=== PATIENT | female | born 1995 | race Caucasian/White ===

== ENCOUNTER 2025-05-24 14:37 | Inpatient (IN) | payer MEDICAID, SELFPAY ==
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
[2025-05-24 15:05] VITALS: BP 139/89; PULSE 78; RESP 14; TEMP 37.1; O2SAT 100
[2025-05-24 15:15] VITALS: BMI 28.4
[2025-05-24] MEDS: Nicotine 21 MG PATCH.TD24 TRANSDERMA (17:18)
--- OUTSIDE RECORDS SUMMARY | 2025-05-24 17:59 | XMS_ITS | Clinical Summary ---
Author Organization [facility] Wil[facility] nix Address [address] [place], [place] [id number] Care Team Providers Care Wildlife Conservationist Name Role Phone None, Pcp MD Primary Care Provider Unavailabl e Allergies Active Allergy Reactions Criticality Noted Date Comments Amoxicillin Hives 05/23/2025 Methadone Hives Low 05/23/2025 Penicillins Hives 05/23/2025 Medications ARIPiprazole (ABILIFY) 15 MG tablet Take 1 tablet (15 mg total) by mouth in the morning. 05/14/2025 Active Encounters Date Type Department Care Team Description 05/24/2025 12:05 AM EST - 05/24/2025 12:11 PM EST Hospital Encounter [facility] Emergency Department [address] [place] [id number] Quincy Dudley MD Schacht, Jesse A, MD Suicidal ideation (Primary Dx) Discharge Disposition: Psychiatric Hospital 05/23/2025 4:19 PM EST - 05/23/2025 8:33 PM EST Emergency [facility] Emergency Department [address] [place] [id number] Armaan Bailey MD Contusion of left wrist, initial encounter (Primary Dx); Closed head injury, initial encounter Discharge Disposition: Home or Self Care 05/23/2025 Travel from Last 3 Months Social History Tobacco Use Types Packs/Day Years Used Date Smoking Tobacco: Never Assessed Comments Unknown Sex and Gender Information Value Date Recorded Sex Assigned at Female 05/23/2025 4:43 PM EST Legal Sex Female 4:19 PM EST Gender Identity Female 05/23/2025 4:43 PM EST Sexual Orientation Not on file Last Filed Vital Signs Vital Sign Reading [...] Mass Index 29.95 05/24/2025 12:02 AM EST Plan of Treatment Health Maintenance Due Date Last Done Comments Depression Screening 2007 Hepatitis C Screening 11/01/2013 DTaP,Tdap,and Td Vaccines (1 - Tdap) 11/01/2014 Cervical Cancer Screening 11/01/2016 Pap Smear 11/01/2016 COVID-19 Vaccine (2024-2 6 season) 2025 Influenza Vaccine (#1) 2025 Blood Pressure 05/24/2029 05/24/2025 Meningococcal B Vaccines Aged Out No longer eligible based on patient's age to complete this topic Meningococcal Vaccines Aged Out No lo nger eligible based on patient's age to complete this topic Pneumococcal Vaccine Aged Out No long er eligible based on patient's age to complete this topic Procedures Procedure Name Priority Date/Time Associated Diagnosis Comments DRUG SCREEN, URINE STAT 05/24/2025 9: 07 AM EST ECG 12-LEAD STAT 05/24/2025 2:09 AM EST CBC AND DIFFERENTIAL STAT 05/24/2025 1:16 AM EST CBC AND DIFFERENTIAL STAT 05/24/2025 1:16 AM EST HCG, QUANTITATIVE STAT 05/24/2025 1:1 6 AM EST COMPREHENSIVE METABOLIC PANEL STAT 05/24/2025 1:16 AM EST TOXICOLOGY SCREEN, BLOOD STAT 05/24/2025 1:16 AM EST MAGNESIUM STAT 05/24/2025 1:[address] CERVICAL SPINE WO CONTRAST STAT 05/23/2025 5:[address] HEAD WO CONTRAST STAT 05/23/2025 5 :27 PM EST XR WRIST 3+ VW LEFT STAT 05/23/2025 5 :22 PM EST from Last 3 Months Results * (ABNORMAL) Drug Screen, Urine (05/24/2025 9:07 AM EST) [facility] Amphetamines Screen, Urine Positive(A) Negative 05/24/2025 9:35 AM [facility] Barbiturates Screen, Urine Negative Negative 05/24/2025 9:35 AM [facility] Benzodiazepine Screen, Urine Negative Negative 05/24/2025 9:35 AM [facility] Buprenorphine Screen, Urine Negative Negative 05/24/2025 9:35 AM [facility] Cannabinoids Screen, Urine Positive(A) Negative 05/24/2025 9:35 AM [facility] Cocaine Metabolite Screen, Urine Positive(A) Negative 05/24/2025 9:35 AM [facility] Fentanyl Screen, Urine Negative Negative 05/24/2025 9:35 AM [facility] Methadone Screen, Urine Negative Negative 05/24/2025 9:35 AM [facility] Opiates Screen, Urine Negative Negative 05/24/2025 9:35 AM [facility] Oxycodone Screen, Urine Negative Negative 05/24/2025 9:35 AM [facility] Propoxyphene Screen, Urine Negative Negative 05/24/2025 9:35 AM [facility] Tricyclics Screen Negative Negative 025 9:35 AM [facility] Comment 05/24/2025 9:35 AM [facility] Comment: The cut-off concentration [...] URINE ORDERABLES Final Result Performing Organization Address City/[facility]/ZIP Co de Phone Number [facility] [address] [place] [address], [place] * ECG 12 lead (05/24/2025 2:09 AM EST) Ventricular Heart Rate 84 BPM EKG BUR MUSE MA Interval 151 ms EKG BUR MUSE QRSD Interval 88 ms EKG BUR MUSE QT Interval 398 ms EKG BUR MUSE QTC Interval 472 ms EKG BUR MUSE P [place] 35 degrees EKG BUR MUSE R [place] 57 degrees EKG BUR MUSE T Wave [place] 30 degrees EKG BUR MUSE 05/24/2025 2:08 [...] ECG ORDERABLES Final Result Performing Organization Address City/[facility] Co de Phone Number EKG BUR MUSE [address] [place] [address] * (ABNORMAL) CBC and Differential (05/24/2025 1:16 AM EST) WBC 6.84 3.90 - 10.80 K/uL 05/24/2025 1:23 AM EST [facility] RBC 4.15 3.93 - 5.29 M/uL 05/24/2025 1:23 AM [facility] Hemoglobin 12.3 12.0 - 15.2 g/dL 05/24/2025 1:23 AM [facility] Hematocrit 37.9 34.1 - 44.9 % 05/24/2025 1:23 AM [facility] MCH 29.6 25.6 - 32.2 pg 05/24/2025 1:23 AM [facility] MCHC 32.5 32.0 - 36.0 g/dL 05/24/2025 1:23 AM [facility] MCV 91 81 - 96 fL 05/24/2025 1:23 AM [facility] RDW 14.7(H) 11.5 - 14.0 % 05/24/2025 1:23 AM [facility] Platelet Count 228 154 - 369 K/uL 05/24/2025 1:23 AM [facility] Neutrophil 43.6 % 05/24/2025 1:23 AM [facility] Lymphocyte 42.0 % 05/24/2025 1:23 AM [facility] Monocyte 9.4 % 05/24/2025 1:23 AM [facility] Eosinophil 3.9 % 05/24/2025 1:23 AM [facility] Basophil 0.7 % 05/24/2025 1:23 AM [facility] Immature Granulocyte ([place], Myelo, Promyelocyte) 0.4 % 05/24/2025 1:23 AM [facility] Absolute Neutrophil Count 2.98 1.68 - 7.99 K/uL 05/24/2025 1:23 AM [facility] Absolute Immature Granulocyte ([place], Myelo, Promyelocyte) 0.03 0.00 - 0.09 K/uL 05/24/2025 1:23 AM [facility] Absolute Lymphocyte Count 2.87 0.66 - 4.75 K/uL 05/24/2025 1:23 AM [facility] Absolute Monocyte Count 0.64 0.16 - 1.40 K/uL 05/24/2025 1:23 AM [facility] Absolute Eosinophil Count 0.27 0.00 - 0.60 K/uL 05/24/2025 1:23 AM EST [facility] Absolute Basophil Count 0.05 0.00 - 0.32 K/uL 05/24/2025 1:23 AM [facility] Blood PERIPHERAL BLOOD SPECIMEN / Unknown Venipuncture / Unknown 05/24/2025 1:16 AM EST 05/24/2025 1:20 AM EST us Quincy Dudley MD LAB BLOOD ORDERABLES Final Resul t Performing Organization Address [facility] de Phone Number [facility] [address] [place] [phone], [place] * (ABNORMAL) Toxicology Screen, Blood (05/24/2025 1:16 AM EST) Acetaminophen Result,Blood <5(L) 10 - 30 ug/mL 05/24/2025 1:52 AM [facility] Alcohol <10 <10 mg/dL 05/24/2025 1:52 AM [facility] Salicylate Level, Blood <1 <30 mg/dL 05/24/2025 1:52 AM [facility] Blood PERIPHERAL BLOOD SPECIMEN / Unknown Venipuncture / Unknown 05/24/2025 1:16 AM EST 05/24/2025 1:20 AM EST us Quincy Dudley MD LAB BLOOD ORDERABLES Final Resul t Performing Organization Address [facility] Phone Number [facility] [address] [place] [phone], [place] * hCG, serum, quantitative (05/24/2025 1:16 AM EST) hCG, Quant <1 mIU/mL 05/24/2025 1:43 AM [facility] Comment: Females: Non-: < [...] ORDERABLES Final Resul t Performing Organization Address City/[facility]/ZIP Co de Phone Number [facility] [address] [place] [address], [place] * Magnesium (05/24/2025 1:16 AM EST) Magnesium, Blood 2.1 1.6 - 2.6 mg/dL 05/24/2025 1:43 AM [facility] Blood PERIPHERAL BLOOD SPECIMEN / Unknown Venipuncture / Unknown 05/24/2025 1:16 AM EST 05/24/2025 1:20 AM EST Quincy Dudley MD LAB BLOOD ORDERABLES Final Resul t Performing Organization Address City/[facility] Co de Phone Number [facility] [address] [place] [address], [place] * (ABNORMAL) Comprehensive Metabolic Panel (05/24/2025 1:16 AM EST) Sodium 139 135 - 146 mmol/L 05/24/2025 1:43 AM [facility] Potassium 3.7 3.4 - 5.2 mmol/L 05/24/2025 1:43 AM [facility] Comment:Samples tested in [facility] may exhibit a higher potassium value than those tested on plasma. Our current range is based on plasma testing. Chloride 106 98 - 110 mmol/L 05/24/2025 1:43 AM [facility] Total CO2/Bicarbonate 24 24 - 32 mmol/L 05/24/2025 1:43 AM [facility] Anion Gap 9 2 - 15 mmol/L 05/24/2025 1:43 AM [facility] BUN 14 7 - 24 mg/dL 05/24/2025 1:43 AM [facility] Creatinine, Blood 0.70 0.50 - 1.10 mg/dL 05/24/2025 1:43 AM [facility] Glucose, Blood 79 50 - 100 mg/dL 05/24/2025 1:43 AM [facility] Calcium 8.4(L) 8.5 - 10.5 mg/dL 05/24/2025 1:43 AM [facility] Total Protein 6.6 6.2 - 8.2 g/dL 05/24/2025 1:43 AM [facility] Albumin, Blood 3.8 3.4 - 5.2 g/dL 05/24/2025 1:43 AM [facility] AST (SGOT) 27 11 - 40 U/L 05/24/2025 1:43 AM [facility] ALT (SGPT) 32 5 - 35 U/L 05/24/2025 1:43 AM [facility] Alkaline Phosphatase 54 35 - 150 U/L 05/24/2025 1:43 AM [facility] Total Bilirubin 0.4 0.2 - 1.2 mg/dL 05/24/2025 1:43 AM [facility] Estimated GFR(CKD-EPI) 120 mL/min/BSA 05/24/2025 1:43 AM [facility] Blood PERIPHERAL BLOOD SPECIMEN / Unknown Venipuncture / Unknown 05/24/2025 1:16 AM EST 05/24/2025 1:20 AM EST us Quincy Dudley MD LAB BLOOD ORDERABLES Final Resul t [facility] [address] [place] [phone], * CT Cervical Spine Without Contrast (05/23/2025 5:27 PM EST) Anatomical Region Laterality Modality Cervical Spine Computed Tomogra phy 05/23/2025 5:26 PM EST Impressions 05/23/2025 6:45 PM EST No evidence of acute fracture or subluxation. THIS DOCUMENT HAS BEEN ELECTRONICALLY SIGNED BY [facility] RADIOLOGIST AYLIN BOWENS MD Narrative 05/23/2025 6:45 [...] THIS DOCUMENT HAS BEEN ELECTRONICALLY SIGNED BY [facility] RADIOLOGIST MD JELENA Aster [facility] ORDERABLES Final Result * CT Head [...] HAS BEEN ELECTRONICALLY SIGNED BY [facility] RADIOLOGIST MD JELENA us Aster [facility] CT ORDERABLES Final Result * XR Wrist 3+ VW Left (05/23/2025 5:22 PM EST) Anatomical Region Laterality Modality Wrist Left Digital Radiogra phy 05/24/2025 8:25 AM EST Impressions 05/24/2025 8:27 AM EST Soft tissue swelling. No acute fracture. Signed By: Penelope Mcadams on 05/24/2025 8:27 AM on [id number] Narrative 05/24/2025 8:27 AM EST HISTORY: pain [...] Penelope Mcadams on 05/24/2025 8:27 AM on [id number] Aster [facility] ORDERABLE S Final Result from Last 3 Months Insurance [facility] [place] Member Subscriber Plan / Payer (Ef fective for All Dates) Name:Milena Valenzuela Member ID:Not on file Relation to Subscriber:Self Name:Milena Valenzuela Subscriber ID:Not on file Payer ID:Not on file Group ID:Not on file Type:Traditional / Indemnity Address: [facility] [address], [place] [facility] Health [facility] Maintenance [facility] ([facility]) Address: [address] [address] [place] Member Subscriber Plan / Payer (Ef fective for All Dates) Name:Milena Valenzuela Member ID:Not on file Relation to Subscriber:Self Name:Milena Valenzuela Subscriber ID:Not on file Payer ID:Not on file Group ID:Not on file Type:Traditional / Indemnity Address: [facility] [address], [place] [facility] [place] [facility] [place] [phone] [place] Care Teams Wildlife Conservationist Relationship Specialty Start Date End Date None, PcpMD PCP - General 05/23/25
--- OUTSIDE RECORDS SUMMARY | 2025-05-24 17:59 | XMS_ITS ---
Author Name [facility] Organization Unknown Results Test Name/Text Value Interpretation Date Range Source Test Serum Qual Negative 04/30/2025 - [facility] Acetaminophen Level <3 04/30/2025 0 - 18 [facility] Ethanol Level Not Detected 04/30/2025 - [facility] Salicylate Level <5.0 Below low normal 04/30/2025 15 - 30 [facility] Creatinine 0.84 MG/DL 04/30/2025 0.44 - 1.03 [facility] eGFR 96.0 mL/min/1.73m exp2 04/30/2025 90 - [facility] BUN Creatinine Ratio 24.0 04/30/2025 [facility] BUN 20.0 MG/DL 04/30/2025 6 - 24 [facility] Anion Gap 6.0 04/30/2025 3 - 13 [facility] CO2 28.0 MEQ/L 04/30/2025 20 - 29 [facility] Glucose 88.0 MG/DL 04/30/2025 67 - 99 [facility] K Level 4.0 MEQ/L 04/30/2025 3.6 - 5.1 [facility] NA 138.0 MEQ/L 04/30/2025 135 - 145 [facility] Chloride 104.0 MEQ/L 04/30/2025 98 - 110 [facility] CA 8.6 MG/DL 04/30/2025 8.4 - 10.2 [facility] Lymphocyte (percent) 41.4 % 04/30/2025 [facility] Eosinophil (absolute) 0.2 y97uxj8/L 04/30/2025 0 - 0.4 [facility] MCH 29.8 pg 04/30/2025 27 - 32.4 [facility] WBC 7.0 q38jln3/L 04/30/2025 4.2 - 10 [facility] Neutrophil (absolute) 3.0 j86awx3/L 04/30/2025 1.9 - 6.7 [facility] NRBC (percent) 0.0 % 04/30/2025 - [facility] Monocyte (absolute) 0.9 d94aao8/L 04/30/2025 0.3 - 0.9 [facility] RBC 4.0 p81zpd69/L 04/30/2025 3.8 - 5.1 [facility] Neutrophil (percent) 43.1 % 04/30/2025 [facility] Lymphocyte (absolute) 2.9 m03klb1/L 04/30/2025 1 - 3.3 [facility] Basophil (percent) 0.7 % 04/30/2025 [facility] HCT 35.7 % Below low normal 04/30/2025 36 - 48 [facility] Platelet Count 224.0 d93omk6/L 04/30/2025 168 - 38 2 [facility] Monocyte (percent) 12.4 % 04/30/2025 [facility] RDW 13.9 % 04/30/2025 11.8 - 14.4 [facility] Basophil (absolute) 0.1 i39bsz9/L 04/30/2025 0 - 0 .1 [facility] HGB 11.9 g/dL 04/30/2025 11.2 - 14.9 [facility] NRBC (absolute) 0.0 a33moh8/L 04/30/2025 [facility] MCV 89.3 fL 04/30/2025 85.2 - 100.2 [facility] MPV 9.5 fL Below low normal 04/30/2025 9.6 - 12.5 [facility] MCHC 33.3 g/dL 04/30/2025 29.5 - 34.2 [facility] Immature Granuloctyes (percent) 0.1 % 04/30/2025 [facility] Eosinophil (percent) 2.3 % 04/30/2025 [facility] Immature Granuloctyes (absolute) 0.0 g63wic4/L 04/30/2025 0 - 0.1 [facility] Leukocyte Est Urine negative 04/02/2025 - [facility] Appearance Urine CLOUDY Abnormal 04/02/2025 - [facility] Urobilinogen Urine negative 04/02/2025 - [facility] Nitrite level negative 04/02/2025 - [facility] Protein Urine negative 04/02/2025 - 10 [facility] Ketone Urine negative 04/02/2025 - [facility] Bilirubin Urine negative 04/02/2025 - [facility] Color Urine yellow 04/02/2025 - [facility] Specific [place] Urine 1.016 04/02/2025 1.01 - 1.03 [facility] Glucose Urine negative 04/02/2025 - [facility] Blood Urine negative 04/02/2025 - [facility] pH Urine 7.0 04/02/2025 5 - 8 [facility] UTI Symptoms Dysuria, urgenc 04/02/2025 [facility] Patient Diagnosis None of these 04/02/2025 [facility] Toxicology Drug Specimen Rec'd 04/02/2025 [facility] Urine Oxycodone Screen None Detected 04/02/2025 [facility] Urine Fentanyl Scrn None Detected 04/02/2025 [facility] Urine Benzodiazepine Scrn None Detected 04/02/2025 [facility] Urine Methadone Screen None Detected 04/02/2025 [facility] Urine Barbiturate Screen None Detected 04/02/2025 [facility] Urine Cocaine Scrn POSITIVE SCREEN Abnormal 04/02/2025 [facility] Urine Phencyclidine Scrn None Detected 04/02/2025 [facility] Urine Amphetamine Scrn None Detected 04/02/2025 [facility] Urine Opiates Scrn None Detected 04/02/2025 [facility] Urine Cannabinoid Scrn None Detected 04/02/2025 [facility] Does patient have covid related symptoms? NO 04/02/2025 [facility] Respiratory Syncytial Virus B Not Detected 04/02/2025 [facility] Mycoplasma pneumoniae Not Detected 04/02/2025 [facility] Chlamydia pneumoniae Not Detected 04/02/2025 [facility] Parainfluenza Virus 2 Not Detected 04/02/2025 [facility] Influenza A Subtype H1 Not Detected 04/02/2025 [facility] Influenza A Subtype H3 Not Detected 04/02/2025 [facility] SARS-CoV-2 Not Detected 04/02/2025 [facility] Influenza A Not Detected 04/02/2025 [facility] Influenza A Subtype 2009 H1N1 Not Detected 04/02/2025 [facility] Respiratory Pathogen Panel Comment Footnote 04/02/2025 [facility] Parainfluenza Virus 1 Not Detected 04/02/2025 [facility] Respiratory Syncytial Virus A Not Detected 04/02/2025 [facility] Influenza B Not Detected 04/02/2025 [facility] Coronavirus (229E, HKU1, NL63, OC43) Not Detected 04/02/2025 [facility] Adenovirus Not Detected 04/02/2025 [facility] Human Metapneumovirus Not Detected 04/02/2025 [facility] Parainfluenza Virus 4 Not Detected 04/02/2025 [facility] Parainfluenza Virus 3 Not Detected 04/02/2025 [facility] Human Rhinovirus/Enteroviru s Not Detected 04/02/2025 [facility] Future AOE for COVID No (just screen 04/02/2025 [facility] Ethanol Level Not Detected 04/02/2025 - [facility] eGFR 105.0 mL/min/1.73m exp2 04/02/2025 90 - [facility] Creatinine 0.78 MG/DL 04/02/2025 0.44 - 1.03 [facility] BUN Creatinine Ratio 15.0 04/02/2025 [facility] BUN 12.0 MG/DL 04/02/2025 6 - 24 [facility] Anion Gap 6.0 04/02/2025 3 - 13 [facility] CO2 27.0 MEQ/L 04/02/2025 20 - 29 [facility] Glucose 78.0 MG/DL 04/02/2025 67 - 99 [facility] CA 8.7 MG/DL 04/02/2025 8.4 - 10.2 [facility] K Level 4.3 MEQ/L 04/02/2025 3.6 - 5.1 [facility] NA 138.0 MEQ/L 04/02/2025 135 - 145 [facility] Chloride 105.0 MEQ/L 04/02/2025 98 - 110 [facility] Salicylate Level <5.0 Below low normal 04/02/2025 15 - 30 [facility] Acetaminophen Level <3 04/02/2025 0 - 18 [facility] Eosinophil (absolute) 0.2 z01myt6/L 04/02/2025 0 - 0.4 [facility] Eosinophil (percent) 2.5 % 04/02/2025 [facility] Lymphocyte (percent) 24.5 % 04/02/2025 [facility] Basophil (percent) 0.6 % 04/02/2025 [facility] RDW 14.6 % Above high normal 04/02/2025 11.8 - 14.4 [facility] Basophil (absolute) 0.1 d41zwa9/L 04/02/2025 0 - 0 .1 [facility] Immature Granuloctyes (absolute) 0.0 i76nbu6/L 04/02/2025 0 - 0.1 [facility] MCHC 31.9 g/dL 04/02/2025 29.5 - 34.2 [facility] MPV 9.2 fL Below low normal 04/02/2025 9.6 - 12.5 [facility] RBC 4.88 k32jaz64/L 04/02/2025 3.8 - 5.1 [facility] Lymphocyte (absolute) 1.9 i73nku5/L 04/02/2025 1 - 3.3 [facility] Neutrophil (absolute) 5.2 u84yey8/L 04/02/2025 1.9 - 6.7 [facility] Neutrophil (percent) 66.0 % 04/02/2025 [facility] NRBC (absolute) 0.0 l87kga2/L 04/02/2025 [facility] Monocyte (percent) 6.0 % 04/02/2025 [facility] Monocyte (absolute) 0.5 s31jzw5/L 04/02/2025 0.3 - 0.9 [facility] HCT 45.2 % 04/02/2025 36 - 48 [facility] NRBC (percent) 0.0 % 04/02/2025 - [facility] MCH 29.5 pg 04/02/2025 27 - 32.4 [facility] MCV 92.6 fL 04/02/2025 85.2 - 100.2 [facility] WBC 7.9 k07wcq6/L 04/02/2025 4.2 - 10 [facility] HGB 14.4 g/dL 04/02/2025 11.2 - 14.9 [facility] Immature Granuloctyes (percent) 0.4 % 04/02/2025 [facility] Platelet Count 270.0 p16kdh3/L 04/02/2025 168 - 38 2 [facility] Glumeter 85.0 MG/DL 04/02/2025 67 - 99 [facility] Does patient have covid related symptoms? NO 03/04/2025 [facility] Chlamydia pneumoniae Not Detected 03/04/2025 [facility] Parainfluenza Virus 2 Not Detected 03/04/2025 [facility] Adenovirus Not Detected 03/04/2025 [facility] Influenza A Subtype 2009 H1N1 Not Detected 03/04/2025 [facility] Human Metapneumovirus Not Detected 03/04/2025 [facility] Influenza B Not Detected 03/04/2025 [facility] Respiratory Syncytial Virus A Not Detected 03/04/2025 [facility] Human Rhinovirus/Enteroviru s Not Detected 03/04/2025 [facility] Parainfluenza Virus 3 Not Detected 03/04/2025 [facility] Parainfluenza Virus 1 Not Detected 03/04/2025 [facility] Influenza A Subtype H3 Not Detected 03/04/2025 [facility] SARS-CoV-2 Not Detected 03/04/2025 [facility] Parainfluenza Virus 4 Not Detected 03/04/2025 [facility] Respiratory Syncytial Virus B Not Detected 03/04/2025 [facility] Coronavirus (229E, HKU1, NL63, OC43) Not Detected 03/04/2025 [facility] Respiratory Pathogen Panel Comment Footnote 03/04/2025 [facility] Mycoplasma pneumoniae Not Detected 03/04/2025 [facility] Influenza A Subtype H1 Not Detected 03/04/2025 [facility] Influenza A Not Detected 03/04/2025 [facility] Future AOE for COVID No (just screen 03/04/2025 [facility] Test Serum Qual Negative 03/04/2025 - [facility] eGFR 114.0 mL/min/1.73m exp2 03/04/2025 90 - [facility] Creatinine 0.73 MG/DL 03/04/2025 0.44 - 1.03 [facility] BUN Creatinine Ratio 27.0 03/04/2025 [facility] BUN 20.0 MG/DL 03/04/2025 6 - 24 [facility] Anion Gap 12.0 03/04/2025 3 - 13 [facility] CO2 19.0 MEQ/L Below low normal 03/04/2025 20 - 29 [facility] Glucose 71.0 MG/DL 03/04/2025 67 - 99 [facility] NA 139.0 MEQ/L 03/04/2025 135 - 145 [facility] CA 9.5 MG/DL 03/04/2025 8.4 - 10.2 [facility] K Level 4.3 MEQ/L 03/04/2025 3.6 - 5.1 [facility] Chloride 108.0 MEQ/L 03/04/2025 98 - 110 [facility] MCH 29.6 pg 03/04/2025 27 - 32.4 [facility] Eosinophil (percent) 0.9 % 03/04/2025 [facility] Immature Granuloctyes (percent) 0.4 % 03/04/2025 [facility] MCHC 33.4 g/dL 03/04/2025 29.5 - 34.2 [facility] Neutrophil (absolute) 4.9 u31lvi4/L 03/04/2025 1.9 - 6.7 [facility] Lymphocyte (percent) 33.1 % 03/04/2025 [facility] Neutrophil (percent) 59.8 % 03/04/2025 [facility] HCT 43.4 % 03/04/2025 36 - 48 [facility] HGB 14.5 g/dL 03/04/2025 11.2 - 14.9 [facility] Lymphocyte (absolute) 2.7 y03dpr7/L 03/04/2025 1 - 3.3 [facility] Monocyte (absolute) 0.4 r34yvt0/L 03/04/2025 0.3 - 0.9 [facility] Platelet Count 405.0 a50dlz1/L Above high normal 03/04/2025 168 - 382 [facility] RBC 4.9 y07zij71/L 03/04/2025 3.8 - 5.1 [facility] Basophil (absolute) 0.1 u73nid1/L 03/04/2025 0 - 0 .1 [facility] Monocyte (percent) 5.1 % 03/04/2025 [facility] NRBC (percent) 0.0 % 03/04/2025 - [facility] WBC 8.2 g91ecf6/L 03/04/2025 4.2 - 10 [facility] MCV 88.6 fL 03/04/2025 85.2 - 100.2 [facility] Eosinophil (absolute) 0.1 w83ovx2/L 03/04/2025 0 - 0.4 [facility] Basophil (percent) 0.7 % 03/04/2025 [facility] RDW 14.0 % 03/04/2025 11.8 - 14.4 [facility] Immature Granuloctyes (absolute) 0.0 b83lrx8/L 03/04/2025 0 - 0.1 [facility] NRBC (absolute) 0.0 g53nju3/L 03/04/2025 [facility] MPV 9.2 fL Below low normal 03/04/2025 9.6 - 12.5 [facility] Urine Fentanyl Scrn POSITIVE SCRN Abnormal 02/23/2025 [facility] Urine Oxycodone Screen POSITIVE SCREEN Abnormal 02/23/2025 [facility] Urine Phencyclidine Scrn None Detected 02/23/2025 [facility] Urine Barbiturate Screen None Detected 02/23/2025 [facility] Urine Benzodiazepine Scrn None Detected 02/23/2025 [facility] Urine Opiates Scrn None Detected 02/23/2025 [facility] Urine Methadone Screen None Detected 02/23/2025 [facility] Urine Amphetamine Scrn None Detected 02/23/2025 [facility] Urine Cannabinoid Scrn None Detected 02/23/2025 [facility] Urine Cocaine Scrn POSITIVE SCREEN Abnormal 02/23/2025 [facility] Toxicology Drug Specimen Rec'd 02/23/2025 [facility] White Blood Cells Urine 36.0 /HPF Above high normal 02/23/2025 0 - 6 [facility] Squamous Epith Cells Urine many 02/23/2025 - [facility] Red Blood Cells Urine >180 Above high normal 02/23/2025 0 - 5 [facility] pH Urine 6.0 02/23/2025 5 - 8 [facility] Specific [place] Urine 1.025 02/23/2025 1.01 - 1.03 [facility] Nitrite level negative 02/23/2025 - [facility] Leukocyte Est Urine TRACE Abnormal 02/23/2025 - [facility] Urobilinogen Urine negative 02/23/2025 - [facility] Blood Urine 3+ Abnormal 02/23/2025 - [facility] Ketone Urine negative 02/23/2025 - [facility] Glucose Urine 3+ Abnormal 02/23/2025 - [facility] Protein Urine 100.0 MG/DL Abnormal 02/23/2025 - 10 [facility] Bilirubin Urine negative 02/23/2025 - [facility] Appearance Urine slt cldy 02/23/2025 - [facility] Color Urine LORAINE Abnormal 02/23/2025 - [facility] UTI Symptoms None of these s 02/23/2025 [facility] Patient Diagnosis None of these 02/23/2025 [facility] OTHER SYMPTIONS URINE CULTURE confusion 02/23/2025 [facility] Test Serum Qual Negative 02/23/2025 - [facility] CPK 271.0 IU/L Above high normal 02/23/2025 22 - 194 [facility] Salicylate Level <5.0 Below low normal 02/23/2025 15 - 30 [facility] Acetaminophen Level <3 02/23/2025 0 - 18 [facility] eGFR >120 02/23/2025 90 - [facility] Creatinine 0.69 MG/DL 02/23/2025 0.44 - 1.03 [facility] BUN Creatinine Ratio 22.0 02/23/2025 [facility] BUN 15.0 MG/DL 02/23/2025 6 - 24 [facility] Anion Gap 9.0 02/23/2025 3 - 13 [facility] CO2 25.0 MEQ/L 02/23/2025 20 - 29 [facility] Glucose 71.0 MG/DL 02/23/2025 67 - 99 [facility] CA 8.3 MG/DL Below low normal 02/23/2025 8.4 - 10.2 [facility] K Level 3.2 MEQ/L Below low normal 02/23/2025 3.6 - 5.1 [facility] NA 142.0 MEQ/L 02/23/2025 135 - 145 [facility] Chloride 108.0 MEQ/L 02/23/2025 98 - 110 [facility] Ethanol Level Not Detected 02/23/2025 - [facility] Platelet Count 285.0 k05bfj4/L 02/23/2025 168 - 38 2 [facility] MCHC 33.0 g/dL 02/23/2025 29.5 - 34.2 [facility] Neutrophil (percent) 58.1 % 02/23/2025 [facility] RBC 4.05 o97tmk20/L 02/23/2025 3.8 - 5.1 [facility] NRBC (absolute) 0.0 z18njo3/L 02/23/2025 [facility] Neutrophil (absolute) 4.2 h40igc7/L 02/23/2025 1.9 - 6.7 [facility] MCV 91.4 fL 02/23/2025 85.2 - 100.2 [facility] HGB 12.2 g/dL 02/23/2025 11.2 - 14.9 [facility] Eosinophil (percent) 9.4 % 02/23/2025 [facility] RDW 14.3 % 02/23/2025 11.8 - 14.4 [facility] Lymphocyte (percent) 23.3 % 02/23/2025 [facility] NRBC (percent) 0.0 % 02/23/2025 - [facility] Basophil (absolute) 0.1 p38asr2/L 02/23/2025 0 - 0 .1 [facility] MCH 30.1 pg 02/23/2025 27 - 32.4 [facility] MPV 9.6 fL 02/23/2025 9.6 - 12.5 [facility] Immature Granuloctyes (percent) 0.4 % 02/23/2025 [facility] Basophil (percent) 0.8 % 02/23/2025 [facility] Monocyte (percent) 8.0 % 02/23/2025 [facility] Immature Granuloctyes (absolute) 0.0 t70pvx6/L 02/23/2025 0 - 0.1 [facility] WBC 7.2 u20ujc3/L 02/23/2025 4.2 - 10 [facility] HCT 37.0 % 02/23/2025 36 - 48 [facility] Monocyte (absolute) 0.6 x07wct3/L 02/23/2025 0.3 - 0.9 [facility] Eosinophil (absolute) 0.7 q09rqz9/L Above high normal 2024 0 - 0.4 [facility] Lymphocyte (absolute) 1.7 h44zas4/L 02/23/2025 1 - 3.3 [facility] Red Blood Cells Urine 51.0 /HPF Above high normal 02/17/2025 0 - 5 [facility] Mucous Urine PRESENT Abnormal 02/17/2025 - [facility] White Blood Cells Urine >180 Above high normal 02/17/2025 0 - 6 [facility] Squamous Epith Cells Urine few 02/17/2025 - [facility] Urobilinogen Urine negative 02/17/2025 - [facility] Appearance Urine CLOUDY Abnormal 02/17/2025 - [facility] Ketone Urine negative 02/17/2025 - [facility] Protein Urine 30.0 MG/DL Abnormal 02/17/2025 - 10 [facility] Color Urine yellow 02/17/2025 - [facility] Nitrite level negative 02/17/2025 - [facility] Bilirubin Urine negative 02/17/2025 - [facility] Blood Urine 1+ Abnormal 02/17/2025 - [facility] pH Urine 6.0 02/17/2025 5 - 8 [facility] Leukocyte Est Urine 3+ Abnormal 02/17/2025 - [facility] Glucose Urine negative 02/17/2025 - [facility] Specific [place] Urine 1.015 02/17/2025 1.01 - 1.03 [facility] UTI Symptoms Dysuria, urgenc 02/17/2025 [facility] Patient Diagnosis None of these 02/17/2025 [facility] Immature Granuloctyes (absolute) 0.1 e54ybb2/L 02/16/2025 0 - 0.1 [facility] Monocyte (absolute) 0.7 l03cth1/L 02/16/2025 0.3 - 0.9 [facility] Lymphocyte (percent) 16.6 % 02/16/2025 [facility] WBC 11.5 m22tiq9/L Above high normal 02/16/2025 4.2 - 10 [facility] Immature Granuloctyes (percent) 0.9 % 02/16/2025 [facility] Eosinophil (absolute) 0.4 l51rst1/L 02/16/2025 0 - 0.4 [facility] Eosinophil (percent) 3.4 % 02/16/2025 [facility] Platelet Count 235.0 b82ujj4/L 02/16/2025 168 - 38 2 [facility] RDW 15.0 % Above high normal 02/16/2025 11.8 - 14.4 [facility] NRBC (absolute) 0.0 d99vpc4/L 02/16/2025 [facility] Neutrophil (absolute) 8.3 q54rtq9/L Above high normal 2024 1.9 - 6.7 [facility] Lymphocyte (absolute) 1.9 w82qtr8/L 02/16/2025 1 - 3.3 [facility] HCT 42.0 % 02/16/2025 36 - 48 [facility] HGB 13.3 g/dL 02/16/2025 11.2 - 14.9 [facility] MCH 29.2 pg 02/16/2025 27 - 32.4 [facility] NRBC (percent) 0.0 % 02/16/2025 - [facility] Basophil (percent) 0.4 % 02/16/2025 [facility] MPV 9.5 fL Below low normal 02/16/2025 9.6 - 12.5 [facility] Monocyte (percent) 6.2 % 02/16/2025 [facility] RBC 4.55 c65jrl62/L 02/16/2025 3.8 - 5.1 [facility] MCV 92.3 fL 02/16/2025 85.2 - 100.2 [facility] Neutrophil (percent) 72.5 % 02/16/2025 [facility] Basophil (absolute) 0.1 z00ftz9/L 02/16/2025 0 - 0 .1 [facility] MCHC 31.7 g/dL 02/16/2025 29.5 - 34.2 [facility] Magnesium Level 1.7 mg/dL 02/16/2025 1.6 - 2.3 [facility] Phosphorus Level 3.1 MG/DL 02/16/2025 2.4 - 4.8 [facility] BUN Creatinine Ratio 17.0 02/16/2025 [facility] Creatinine 0.81 MG/DL 02/16/2025 0.44 - 1.03 [facility] eGFR 101.0 mL/min/1.73m exp2 02/16/2025 90 - [facility] BUN 14.0 MG/DL 02/16/2025 6 - 24 [facility] Anion Gap 4.0 02/16/2025 3 - 13 [facility] CO2 27.0 MEQ/L 02/16/2025 20 - 29 [facility] Glucose 82.0 MG/DL 02/16/2025 67 - 99 [facility] CA 8.5 MG/DL 02/16/2025 8.4 - 10.2 [facility] NA 136.0 MEQ/L 02/16/2025 135 - 145 [facility] Chloride 105.0 MEQ/L 02/16/2025 98 - 110 [facility] K Level 5.2 MEQ/L Above high normal 02/16/2025 3.6 - 5.1 [facility] Urine Fentanyl Scrn POSITIVE SCRN Abnormal 02/15/2025 [facility] Urine Oxycodone Screen None Detected 02/15/2025 [facility] Urine Benzodiazepine Scrn None Detected 02/15/2025 [facility] Urine Phencyclidine Scrn None Detected 02/15/2025 [facility] Urine Amphetamine Scrn None Detected 02/15/2025 [facility] Urine Barbiturate Screen None Detected 02/15/2025 [facility] Urine Cannabinoid Scrn POSITIVE SCREEN Abnormal 02/15/2025 [facility] Urine Opiates Scrn None Detected 02/15/2025 [facility] Urine Methadone Screen None Detected 02/15/2025 [facility] Urine Cocaine Scrn POSITIVE SCREEN Abnormal 02/15/2025 [facility] Toxicology Drug Specimen Rec'd 02/14/2025 [facility] Bacteria Urine FEW Abnormal 02/14/2025 - [facility] White Blood Cells Urine 13.0 /HPF Above high normal 02/14/2025 0 - 6 [facility] Calcium Oxalate Crystals PRESENT Abnormal 02/14/2025 - [facility] Red Blood Cells Urine 0.0 /HPF 02/14/2025 0 - 5 [facility] Squamous Epith Cells Urine moderate 02/14/2025 - [facility] Mucous Urine PRESENT Abnormal 02/14/2025 - [facility] Specific [place] Urine 1.02 02/14/2025 1.01 - 1.03 [facility] Color Urine LORAINE Abnormal 02/14/2025 - [facility] Glucose Urine negative 02/14/2025 - [facility] pH Urine 6.0 02/14/2025 5 - 8 [facility] Nitrite level POSITIVE Abnormal 02/14/2025 - [facility] Appearance Urine slt cldy 02/14/2025 - [facility] Protein Urine 30.0 MG/DL Abnormal 02/14/2025 - 10 [facility] Ketone Urine negative 02/14/2025 - [facility] Blood Urine negative 02/14/2025 - [facility] Bilirubin Urine negative 02/14/2025 - [facility] Leukocyte Est Urine 2+ Abnormal 02/14/2025 - [facility] Urobilinogen Urine 1+ Abnormal 02/14/2025 - [facility] OTHER SYMPTIONS URINE CULTURE trauma 02/14/2025 [facility] Patient Diagnosis None of these 02/14/2025 [facility] UTI Symptoms None of these s 02/14/2025 [facility] Antibody Screen NEG 02/14/2025 [facility] ABORh Type A NEG 02/14/2025 [facility] Test Serum Qual Negative 02/14/2025 - [facility] Ethanol Level 86.0 MG/DL Above high normal 02/14/2025 - [facility] Creatinine 0.7 MG/DL 02/14/2025 0.44 - 1.03 [facility] BUN Creatinine Ratio 11.0 02/14/2025 [facility] eGFR 120.0 mL/min/1.73m exp2 02/14/2025 90 - [facility] BUN 8.0 MG/DL 02/14/2025 6 - 24 [facility] Anion Gap 8.0 02/14/2025 3 - 13 [facility] CO2 23.0 MEQ/L 02/14/2025 20 - 29 [facility] Glucose 77.0 MG/DL 02/14/2025 67 - 99 [facility] Chloride 109.0 MEQ/L 02/14/2025 98 - 110 [facility] CA 8.5 MG/DL 02/14/2025 8.4 - 10.2 [facility] K Level 3.0 MEQ/L Below low normal 02/14/2025 3.6 - 5.1 [facility] NA 140.0 MEQ/L 02/14/2025 135 - 145 [facility] Prothrombin Time 11.8 sec 02/14/2025 10 - 13 [facility] INR 1.0 02/14/2025 0.8 - 1.2 [facility] aPartial Thromboplastin Time 30.0 sec 02/14/2025 24 - 37 [facility] Basophil (percent) 0.6 % 02/14/2025 [facility] RBC 4.42 v50ize65/L 02/14/2025 3.8 - 5.1 [facility] Neutrophil (percent) 66.3 % 02/14/2025 [facility] MCH 29.6 pg 02/14/2025 27 - 32.4 [facility] Platelet Count 251.0 c57ffn8/L 02/14/2025 168 - 38 2 [facility] MCHC 33.2 g/dL 02/14/2025 29.5 - 34.2 [facility] Monocyte (absolute) 0.4 z70ieb4/L 02/14/2025 0.3 - 0.9 [facility] MPV 9.5 fL Below low normal 02/14/2025 9.6 - 12.5 [facility] Immature Granuloctyes (percent) 0.6 % 02/14/2025 [facility] NRBC (percent) 0.0 % 02/14/2025 - [facility] HGB 13.1 g/dL 02/14/2025 11.2 - 14.9 [facility] Monocyte (percent) 4.6 % 02/14/2025 [facility] Eosinophil (absolute) 0.2 q60vlf4/L 02/14/2025 0 - 0.4 [facility] Neutrophil (absolute) 6.0 f68msb6/L 02/14/2025 1.9 - 6.7 [facility] MCV 89.4 fL 02/14/2025 85.2 - 100.2 [facility] HCT 39.5 % 02/14/2025 36 - 48 [facility] Lymphocyte (absolute) 2.3 h35qde0/L 02/14/2025 1 - 3.3 [facility] NRBC (absolute) 0.0 s35kxh4/L 02/14/2025 [facility] Eosinophil (percent) 2.4 % 02/14/2025 [facility] Lymphocyte (percent) 25.5 % 02/14/2025 [facility] RDW 14.6 % Above high normal 02/14/2025 11.8 - 14.4 [facility] WBC 9.0 h36dwz9/L 02/14/2025 4.2 - 10 [facility] Basophil (absolute) 0.1 g98nuz0/L 02/14/2025 0 - 0 .1 [facility] Immature Granuloctyes (absolute) 0.1 e78esd7/L 02/14/2025 0 - 0.1 [facility] Est. average glucose Bld gHb Est-mCnc 97.0 mg/dL Normal 11/21/2024 70 - 130 [facility] Hgb A1c MFr Bld HPLC 5.0 % 11/21/2024 - 5.7 [facility] Glucose SerPl-mCnc 93.0 mg/dL Normal 11/21/2024 70 - 100 [facility] Cholest SerPl-mCnc 132.0 mg/dL Normal 11/21/2024 - 200 [facility] Trigl SerPl-mCnc 61.0 mg/dL Normal 11/21/2024 - 150 [facility] HDLc SerPl-mCnc 56.0 mg/dL 11/21/2024 39 - [facility] VLDLc SerPl Calc-mCnc 12.2 mg/dL 11/21/2024 [facility] LDL SerPl Calc-mCnc 64.0 mg/dL Normal 11/21/2024 - 100 [facility] Does patient have covid related symptoms? NO 11/20/2024 [facility] Influenza B PCR Not Detected 11/20/2024 [facility] Influenza A PCR Not Detected 11/20/2024 [facility] SARS-Cov-2 PCR Not Detected 11/20/2024 [facility], Influ[facility] A/B, RSV Comment Footnote 11/20/2024 [facility] RSV PCR Not Detected 11/20/2024 [facility] Future AOE for COVID No (just screen 11/20/2024 [facility] Toxicology Drug Specimen Rec'd 11/20/2024 [facility] Urine Fentanyl Scrn POSITIVE SCRN Abnormal 11/20/2024 [facility] Urine Oxycodone Screen None Detected 11/20/2024 [facility] Urine Barbiturate Screen None Detected 11/20/2024 [facility] Urine Opiates Scrn None Detected 11/20/2024 [facility] Urine Methadone Screen None Detected 11/20/2024 [facility] Urine Benzodiazepine Scrn None Detected 11/20/2024 [facility] Urine Amphetamine Scrn None Detected 11/20/2024 [facility] Urine Cocaine Scrn POSITIVE SCREEN Abnormal 11/20/2024 [facility] Urine Phencyclidine Scrn None Detected 11/20/2024 [facility] Urine Cannabinoid Scrn None Detected 11/20/2024 [facility] ALT 123.0 IU/L Above high normal 11/20/2024 7 - 49 [facility] Bili Direct 0.4 MG/DL 11/20/2024 0 - 0.4 [facility] AST 75.0 IU/L Above high normal 11/20/2024 12 - 52 [facility] Alkaline Phosphatase 117.0 IU/L 11/20/2024 39 - 11 7 [facility] Bili Total 0.9 MG/DL 11/20/2024 0.1 - 1.2 [facility] Total Protein 7.6 G/DL 11/20/2024 6.1 - 8.3 [facility] Albumin 4.3 G/DL 11/20/2024 3.4 - 5.1 [facility] H Test Serum Qual Negative 11/20/2024 - [facility] Ethanol Level Not Detected 11/20/2024 - [facility] BUN Creatinine Ratio 30.0 11/20/2024 [facility] eGFR 101.0 mL/min/1.73m 2 11/20/2024 90 - [facility] Creatinine 0.81 MG/DL 11/20/2024 0.44 - 1.03 [facility] BUN 24.0 MG/DL 11/20/2024 6 - 24 [facility] CO2 20.0 MEQ/L 11/20/2024 20 - 29 [facility] Anion Gap 13.0 11/20/2024 3 - 13 [facility] Glucose 74.0 MG/DL 11/20/2024 67 - 99 [facility] 8.7 [facility]/DL 11/20/2024 8.4 - 10.2 [facility] NA 136.0 MEQ/L 11/20/2024 135 - 145 [facility] Chloride 103.0 MEQ/L 11/20/2024 98 - 110 [facility]_BR[facility] NU K Level 3.6 MEQ/L 11/20/2024 3.6 - 5.1 [facility] Neutrophil (absolute) 7.6 x10 9/L Above high normal 11/21/19 1.9 - 6.7 [facility] MCHC 33.5 g/dL 11/20/2024 29.5 - 34.2 [facility] MCV 86.8 fL 11/20/2024 85.2 - 100.2 [facility] Eosinophil (absolute) 0.0 x10 9/L 11/20/2024 0 - 0 .4 [facility] Lymphocyte (percent) 19.3 % 11/20/2024 [facility] MPV 10.0 fL 11/20/2024 9.6 - 12.5 [facility] HGB 13.4 g/dL 11/20/2024 11.2 - 14.9 [facility] Platelet Count 261.0 x10 9/L 11/20/2024 168 - 382 [facility] Monocyte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
--- OUTSIDE RECORDS SUMMARY | 2025-05-24 18:00 | XMS_ITS | Encounter Summary ---
Author Organization [facility] Address [address] [place], [place] [address] Care Team Providers Care Yield Engineer Name Role Phone None, Pcp Primary Care Provider Unavailabl e Encounter Details Date Type Department Care Team (Latest Contact Info) Description 05/23/2025 Travel Social History Tobacco Use Types Packs/Day Years Used Date Smoking Tobacco: Never Assessed Comments Unknown Sex and Gender Information Value Date Recorded Sex Assigned at Female 05/23/2025 4:43 PM EST Legal Sex Female 4:19 PM EST Gender Identity Female 05/23/2025 4:43 PM EST Sexual Orientation Not on file documented as of this encounter Functional Status * Are you [...] PM Briana Medeiros documented in this encounter Plan of Treatment Not on file documented as of this encounter Visit Diagnoses Not on filedocumented in this encounter Care Teams Yield Engineer Relationship Specialty Start Date End Date None, PcpMD PCP - General 05/23/25 documented as of this encounter
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
[2025-05-24 20:00] VITALS: BP 127/82; PULSE 80; RESP 14; TEMP 37; O2SAT 98
[2025-05-24] MEDS: Flu Vacc TS2025-26(6mo up)/PF 0.5 ML SYRINGE IM (21:27)
[2025-05-25 08:00] VITALS: BP 137/78; PULSE 70; RESP 16; TEMP 37.2; O2SAT 100
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
[2025-05-25 16:15] LABS: Alanine Aminotransferase 43 U/L (0-31); Albumin Level 4.1 g/dL (3.5-5.0); Alkaline Phosphatase 59 U/L (39-117); Anion Gap 13 (12-20); Aspartate Amino Transferase 27 U/L (5-31); Blood Urea Nitrogen 20 mg/dL (9-16); Calcium 9.2 mg/dL (8.4-10.2); Carbon Dioxide 26 mmol/L (22-29); Chloride 106 mmol/L (96-108); Cholesterol 189 mg/dL (<200); Creatinine Clr Calc Pharmacy 86.2; Estimated Glomerular Filt Rate > 60; HDL Cholesterol 62 mg/dL (>40); Magnesium 1.9 mg/dL (1.6-2.6); Potassium 4.3 mmol/L (3.3-5.1); Sodium 141 mmol/L (135-145); Total Protein 7.1 g/dL (6.5-8.0); Triglycerides 182 mg/dL (<150)
[2025-05-25 16:28] LABS: Free T4 (Free Thyroxine) 0.98 ng/dL (0.71-1.85); Thyroid Stimulating Hormone 0.59 uIU/mL (0.32-4.0)
[2025-05-25 16:35] LABS: Erythrocyte Sedimentation Rate 8 MM/HR (0-20)
[2025-05-25 16:45] LABS: Folate 11.6 ng/mL (> or = 4.0); Vitamin B12 397 pg/mL (200-900)
[2025-05-25 20:00] VITALS: BP 112/53; PULSE 77; TEMP 36.7; O2SAT 98
[2025-05-26 08:00] VITALS: BP 118/63; PULSE 73; RESP 16; TEMP 36.9; O2SAT 96
[2025-05-26 09:21] LABS: IDNOW Serial# 58CA691E; Strep A Nucleic Acid Negative (Negative)
[2025-05-26 09:30] LABS: Resp Syncy Virus RNA Qual PCR NEGATIVE (Negative); SARS COV2 PCR INHOUSE NEGATIVE (Negative)
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
[2025-05-26 13:34] VITALS: BP 149/84
[2025-05-26 20:00] VITALS: BP 108/59; PULSE 80; RESP 16; TEMP 36.6; O2SAT 98
[2025-05-26 21:04] VITALS: BP 108/53
[2025-05-27 07:00] VITALS: BMI 29.1
[2025-05-27 08:00] VITALS: BP 128/73; PULSE 75; RESP 16; TEMP 36.8; O2SAT 96
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
[2025-05-27 20:00] VITALS: BP 113/58; PULSE 75; TEMP 36.9; O2SAT 98
[2025-05-28] MEDS: Lidocaine 4 % Patch ADH..PATCH 2 PATCH TRANSDERMA (08:54)
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
== END 2025-05-28 12:15 | disposition home or self-care (01) | DRG 753 ==
PROVIDERS: Nurse Practitioner Psychiatric/Mental Health; Admitting Provider Psychiatry & Neurology Psychiatry; Visit Provider Clinical Nurse Specialist Psychiatric/Mental Health, Adult
DX: F31.9 Bipolar disorder, unspecified (principal); R45.851 Suicidal ideations; F19.90 Other psychoactive substance use, unspecified, uncomplicated; F43.10 Post-traumatic stress disorder, unspecified; Z20.822 Contact with and (suspected) exposure to COVID-19; Z59.02 Unsheltered homelessness; Z79.899 Other long term (current) drug therapy
CPT/HCPCS: 36415; 80053; 80061; 82607; 82746; 83036; 83735; 84439; 84443; 85652; 86140; 87086; 87637; 87651; 90656

== ENCOUNTER → 2025-05-24 14:37 | Outpatient (BNV) | payer MEDICAID, SELFPAY | PROVIDERS: Admitting Provider Psychiatry & Neurology Psychiatry; Visit Provider Nurse Practitioner Family | DX: F19.90 Other psychoactive substance use, unspecified, uncomplicated (principal) | CPT/HCPCS: 99221 ==

== ENCOUNTER → 2025-05-24 14:37 | Outpatient (BNV) | payer MEDICAID, SELFPAY | PROVIDERS: Admitting Provider Psychiatry & Neurology Psychiatry; Visit Provider Clinical Nurse Specialist Psychiatric/Mental Health, Adult | DX: F31.9 Bipolar disorder, unspecified (principal); F43.11 Post-traumatic stress disorder, acute; F19.90 Other psychoactive substance use, unspecified, uncomplicated | CPT/HCPCS: 90792; 99232; 99238 ==